=== PATIENT | female | born 1965 | race Caucasian/White ===

== ENCOUNTER → 2017-10-25 | Outpatient (CLI) | payer OTHER ==
[~2017-10-25] MED LIST: METHACHOLINE KIT (J7674) INH
== END ==
LOC: M CARPUL 12:42
DX: R05 Cough (principal); R06.00 Dyspnea, unspecified

== ENCOUNTER → 2018-01-08 | Outpatient (CLI) | payer OTHER | LOC: M CARPUL 09:37 | DX: R05 Cough (principal); R06.00 Dyspnea, unspecified | CPT/HCPCS: J7674 ==

== ENCOUNTER → 2018-12-25 | Outpatient (CLI) | payer OTHER ==
--- NOTE | 2018-12-25 16:09 | REP ---
HISTORY: Intermittent asthma. COMPARISON: 06/26/2003, the only prior. The heart is not enlarged. The pleural angles are sharp. There is subtle silhouetting out of the left heart border with no evidence of an abnormal opacity in the lingular region on the lateral view. The lung marina are otherwise clear. The osseous structures are stable and intact. IMPRESSION: Abnormal silhouetting out of the left heart border of uncertain etiology as described above. CT examination of the chest is recommended as a parenchymal lesion could be responsible for the finding. Electronically Signed by Marbin Rendon DO 12/25/2018 05:04 P
[2018-12-25 18:39] LABS: BASO # 0.1 10^3/uL (0.0-0.2); BASO % 0.7 % (0.0-1.0); EOS # 0.5 10^3/uL (0.0-0.5); EOS % 5.6 % (0.0-3.0); LYMPH # 3.3 10^3/uL (1.5-5.0); LYMPH % 41.5 % (24.0-44.0); MEAN CORPUSCULAR HGB CONC 32.4 g/dl (32.0-36.5); MEAN CORPUSCULAR VOLUME 89.4 fl (80.0-96.0); MONO # 0.5 10^3/uL (0.0-0.8); NEUTROPHILS # 3.7 10^3/uL (1.5-8.5); NEUTROPHILS % 45.6 % (36.0-66.0); PLATELET COUNT, AUTOMATED 432 10^3/uL (150-450); RED BLOOD COUNT 4.14 10^6/uL (4.00-5.40)
[2018-12-30 00:06] LABS: E001-IgE Cat Epith/Dander < 0.10 kU/L (Class 0); E005-IgE Dog Dander < 0.10 kU/L (Class 0); G008-IgE Kentucky Bluegrass 0.71 kU/L (Class II); M001-IgE Penicillium chrysogen < 0.10 kU/L (Class 0); M002 IgE Cladosporium herbaru < 0.10 kU/L (Class 0); M003 IgE Aspergillus fumigatu < 0.10 kU/L (Class 0); M006-IgE Alternaria alternata < 0.10 kU/L (Class 0); T001-IgE Maple/Box Elder < 0.10 kU/L (Class 0); T003-IgE Common Silver Birch < 0.10 kU/L (Class 0); T006-IgE Cedar, Mountain < 0.10 kU/L (Class 0); T007-IgE Oak, White < 0.10 kU/L (Class 0); T008-IgE Elm, American < 0.10 kU/L (Class 0); T015-IgE Ash, White < 0.10 kU/L (Class 0); T041-IgE Hickory, White 0.98 kU/L (Class II); T070-IgE White Mulberry < 0.10 kU/L (Class 0); W001-IgE Ragweed, Short < 0.10 kU/L (Class 0); W009-IgE Plantain, English < 0.10 kU/L (Class 0); W014-IgE Pigweed, Rough < 0.10 kU/L (Class 0); W018-IgE Sheep Sorrel < 0.10 kU/L (Class 0)
== END ==
LOC: M SMT 14:39
PROVIDERS: ATTEND Internal Medicine Pulmonary Disease
DX: J45.20 Mild intermittent asthma, uncomplicated (principal)